=== PATIENT | female | born 1990 | race African-American/Black ===

== ENCOUNTER 2019-04-02 20:49 | Emergency (ER) | payer MEDICAID, SELFPAY ==
[2019-04-02 20:55] VITALS: BP 129/96; PULSE 137; RESP 18; TEMP 36.6; O2SAT 97
--- NOTE | 2019-04-02 21:03 | W.ED.GENAD ---
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 Details Chief Complaint: RespSymp Clinical Impression: Asthma exacerbation, Viral URI Primary Care Provider: None,None ED Provider: Galen Zabala Home Meds and New Rx's Prescriptions: New albuterol sulfate 90 mcg/actuation HFA aerosol inhaler 2 puff IH .q4-6h PRN (Reason: shortness of breath or wheezing) Qty: 8.5 RF: 0 prednisone 20 mg tablet 40 mg PO DAILY Qty: 6 RF: 0 Discharge Instructions Instructions: Albuterol (By breathing), Asthma (ED), How to Use a Metered-Dose Inhaler and a Spacer (ED) Additional Instructions: Use albuterol inhaler every 4-6 hours for shortness of breath and wheezing. Short burst of steroids to help quiet things down. Please stay hydrated. May use Tylenol or Motrin if needed for discomfort. Will have care management work with you in obtaining a primary care physician in the area. Return to ED for spiking high fevers, chest pain, increasing shortness of breath, other concerns or problems. Referrals: Care Management [Provider Group] Medical Decision Making Patient looks relatively well but has quite an accelerated heart rate. It is regular and most likely sinus tach. She is not describing chest pain, pleurisy. She only feels short of breath with significant exertion. There is no calf tenderness. I do not think that this is PE. I think it is a viral URI with some asthma. She is not wheezing but will give her a DuoNeb and see if she feels any better. Will place an IV and give her a liter of fluid. Check CBC, chemistry, chest x-ray, EKG. Patient feels much better after DuoNeb and albuterol. Labs are unremarkable. Chest x-ray negative. I will give her a short burst of steroids. Heart rate is come down to 110 with fluids. May continue to be mildly elevated due to the nebulizers. She feels much better. Discharge home. Lab Data Lab results reviewed: Yes I reviewed the patient's lab results. ECG Data Attestation: I personally reviewed and interpreted this ECG (s) as follows: Prior ECG tracings: not available for review Interpretation: Sinus tachycardia at a rate of 114. Normal axis and intervals. No acute ST changes. HPI General Mode of arrival: ambulatory. Date/Time Provider Initiated Documentation: 04/02/19 20:55. Limitations to Documentation: no limitations. Information obtained by: patient and RN notes reviewed. HPI Narrative: Patient presents to ED with complaint of worsening URI symptoms over the last couple of days. She has had some mild symptoms for little over a week. The last 2 days she has been worse with increased cough, congestion, dyspnea with exertion. She has headaches on and off. Denies body aches. Denies fevers or chills. She is taking adequate p.o. and has no GI symptoms. She has had to cut way back on smoking because it makes her feel worse in terms of breathing. She has been having some wheeze. She does have history of asthma with hospitalizations as a child but not adult. She does not currently have an inhaler. Related Data Home Medications Medication Instructions Recorded Confirmed albuterol sulfate 2 puff IH .q4-6h PRN #8.5 gm 04/02/19 prednisone 40 mg PO DAILY #6 tab 04/02/19 Previous Rx's Medication Instructions Recorded albuterol sulfate 2 puff IH .q4-6h PRN #8.5 gm 04/02/19 prednisone 40 mg PO DAILY #6 tab 04/02/19 Allergies Allergy/AdvReac Type Severity Reaction Status Date / Time No Known Allergies Allergy Unverified 12/21/17 13:02 General Stated Complaint: RespSymp ERYN: 3 Review of Systems Review of Systems Narrative: As documented in HPI otherwise negative as below. Const: no fever, chills, weakness Resp: cough, NICE; no pleuritic pain CV: no CP, diaphoresis, edema, syncope GI: no abdominal pain, nausea, vomiting, diarrhea Neuro: headache; no numbness, focal weakness, confusion [facility] Medical History Asthma (Chronic) Social History (Updated 04/02/19 @ 21:16 by Galen Zabala MD) Smoking/Tobacco Use Status: Current every day Alcohol Intake: current Alcohol Intake frequency: a few times a month Drug use: Never Substance use type: does not use Do you feel safe in your relationship?: Yes Exam Narrative Exam Narrative: Vitals: Afebrile. Tachycardic to 137 at triage. Somewhat elevated blood pressure. Normal O2 saturations on room air. Const: WDWN female in NAD. HEENT: NC/AT. Normal facial exam. TMs normal. OP with some mild erythema posteriorly. No edema, exudate or sores. Eyes: Normal conjunctiva and sclera. Neck: Supple. Trachea midline. Lungs: Normal respiratory effort. Lungs mostly clear, little diminished in the apex, scattered wheeze. Cor: RRR without murmur/gallop. Good radial pulses. Tachy. Neuro: A+O x 3. CN grossly in tact. Good strength and no focal deficit. Ext: No C/C/E. No calf tenderness. Skin: Warm and dry without rash. Course Vital Signs Vital signs: Vital Signs Temperature 97.9 F 04/02/19 20:55 Pulse 137 H 04/02/19 20:55 Respiratory Rate 18 04/02/19 20:55 Blood Pressure 129/96 H 04/02/19 20:55 Pulse Oximetry 97 04/02/19 20:55 Temperature 97.9 F 04/02/19 20:55 Temperature Source Tympanic 04/02/19 20:55 Pulse 137 H 04/02/19 20:55 Respiratory Rate 18 04/02/19 20:55 Blood Pressure 129/96 H 04/02/19 20:55 Pulse Oximetry 97 04/02/19 20:55 Pain Level 3 04/02/19 20:55 Comment 04/02/19 20:55
[2019-04-02 21:40] LABS: Abs Immature Grans 0.04 k/cumm (0.0-0.09); Absolute Basophil Count 0.04 k/cumm (0.0-0.2); Absolute Eosinophil Count 0.35 k/cumm (0.0-0.7); Absolute Lymphocyte Count 1.82 k/cumm (1.2-3.4); Absolute Monocyte Count 1.28 k/cumm (0.11-0.7); Absolute Neutrophil Count 7.38 k/cumm (1.2-6.7); Basophils % 0.4; Eosinophils % 3.2; HCT 39.5 % (36.0-46.0); HGB 13.3 g/dL (12.0-15.5); Immature Grans % 0.4; Lymphocytes % 16.7; Mean Corp. HGB Concentration 33.7 g/dL (32.0-36.0); Mean Corpuscular Hemoglobin 31.7 pg (27.0-33.0); Mean Corpuscular Volume 94.3 fL (80-95); Mean Platelet Volume 9.2 fL (8.0-11.0); Monocytes % 11.7; Neutrophils % 67.6; Platelet Count 366 x1000/uL (130-400); RBC 4.19 m/cumm (4.00-5.20); RBC Distribution Width 11.9 % (11.7-14.6); White Blood Cell Count 10.91 k/cumm (4.4-10.8)
[2019-04-02] MEDS: Albuterol/Ipratropium 3 ML UPD VIAL UPD (21:40)
[2019-04-02] MEDS: Lactated Ringers 1,000 ML 1000 ML IV (21:40)
--- NOTE | 2019-04-02 21:42 | DI.RAD_ITS ---
EXAM: XR CHEST 2V PA LATERAL INDICATION: cough/SOB. COMPARISON: No exams were available for comparison TECHNIQUE: 2D digital imaging was performed. FINDINGS: Heart is not enlarged. The lungs are clear. No pleural effusion seen. IMPRESSION: No evidence of acute process.
[2019-04-02 21:47] LABS: Anion Gap 12.4 mmol/L (3-11); BUN 7 mg/dL (7-18); CO2 23.6 mmol/L (21.0-32.0); CREATININE 0.64 mg/dL (0.55-1.02); Calcium 8.8 mg/dL (8.5-10.1); Chloride 104 mmol/L (98-107); Glucose 145 mg/dL (70-100); Potassium 3.6 mmol/L (3.5-5.1); Sodium 140 mmol/L (136-145)
[2019-04-02] MEDS: Albuterol 2.5 MG/3 ML INH SOLN VIAL UPD (22:17)
[2019-04-02] MEDS: predniSONE 20 MG TAB 60 MG PO (22:18)
--- NOTE | 2019-04-02 22:20 | DI.VRAD_ITS ---
PROCEDURE INFORMATION: Exam: XR Chest, 2 Views Exam date and time: 04/02/2019 10:02 PM Clinical history: 28 years old, female; Cough and shortness of breath; Smoker's cough TECHNIQUE: Imaging protocol: XR of the chest Views: 2 views. COMPARISON: No relevant prior studies available. FINDINGS: Lungs: Unremarkable. No consolidation. Pleural space: Unremarkable. No evidence of pneumothorax. Heart/Mediastinum: Unremarkable. Heart size within normal limits for technique. Bones/joints: Unremarkable. IMPRESSION: No acute findings. Dictated and Authenticated by: Carter Schmitt MD. Ordering:DALTON Aaron MD
[2019-04-02 22:24] VITALS: PULSE 115; O2SAT 99
[2019-04-02 22:49] VITALS: BP 129/96; PULSE 115; O2SAT 99
[2019-04-02] MEDS: Albuterol HFA 8 GM 60 PUFF INH IH (22:57)
== END 2019-04-02 23:03 | disposition home or self-care (01) ==
PROVIDERS: Emergency Provider Emergency Medicine
DX: J45.901 Unspecified asthma with (acute) exacerbation (principal); J06.9 Acute upper respiratory infection, unspecified
CPT/HCPCS: 80048; 93005; 94640; 96360; 99285; 71046; 85025; 93010; J7512; J7613; J7620

== ENCOUNTER 2019-04-12 13:13 | Emergency (ER) | payer MEDICAID, SELFPAY ==
[2019-04-12 13:25] VITALS: BP 140/89; PULSE 102; RESP 18; TEMP 36.7; O2SAT 99
--- NOTE | 2019-04-12 16:02 | ED.GENADUL_ITS ---
Discharge Plan Disposition Patient Disposition: HOME Discharge Details Chief Complaint: DentalOral Clinical Impression: Dental caries, Abscess, dental Primary Care Provider: None,None ED Provider: Jose Mcdonald Home Meds and New Rx's Prescriptions: New penicillin V potassium 500 mg tablet 500 mg PO QID 10 Days Qty: 40 RF: 0 No Action albuterol sulfate 90 mcg/actuation HFA aerosol inhaler 2 puff IH .q4-6h PRN (Reason: shortness of breath or wheezing) Qty: 8.5 RF: 0 Discharge Instructions Instructions: Dental Abscess (ED), Dental Caries (ED) Additional Instructions: Ibuprofen 200 mg: take 3 tabs every 8 hours as needed for pain and swelling. Tylenol 500 mg: take 2 tabs every 8 hours as needed for pain and swelling Take antibiotics as prescribed for the entire duration. Follow up with Dentist this Sunday as scheduled. Return should symptoms worsen Referrals: Jose Mcdonald PA [Emergency Provider] - Return if symptoms worsen Medical Decision Making This is a nontoxic-appearing 28-year-old female with a right to dental carry with associated gingival swelling. I do not appreciate a fluctuant fluid-filled abscess at this point time. She has no facial erythema. Vitals are stable here. Plan is to place on penicillin 500 mg 4 times daily x10 days and have her keep her appointment with her dentist in 48 hours. Return precautions provided. HPI General Date/Time Provider Initiated Documentation: 04/12/19 13:35 . HPI Narrative: Patient is a 28-year-old female who presents to the emergency department with right lower dental pain and jaw swelling over the last 8 to 12 hours. Patient states that she is a dental pain for the last 3 to 4 days. She denies any severe facial tenderness or redness. No fevers. No eye pain or discharge. She has a follow-up with her dentist in 48 hours. She has no allergies to antibiotics. Related Data Home Medications Medication Instructions Recorded Confirmed albuterol sulfate 2 puff IH .q4-6h PRN #8.5 gm 04/02/19 04/12/19 penicillin V potassium 500 mg PO QID 10 Days #40 tab 04/12/19 Previous Rx's Medication Instructions Recorded albuterol sulfate 2 puff IH .q4-6h PRN #8.5 gm 04/02/19 penicillin V potassium 500 mg PO QID 10 Days #40 tab 10/12/19 Allergies Allergy/AdvReac Type Severity Reaction Status Date / Time No Known Allergies Allergy Unverified 04/12/19 13:27 General Stated Complaint: DentalOral ERYN: 4 Review of Systems Constitutional Constitutional: Denies chills, Denies fever(s), Denies headache(s) and Denies malaise Eyes Eyes: Denies eye discharge ENT Ears, Nose, Mouth, and Throat: Denies bleeding gums, Reports dental pain, Denies dry mouth, Denies headache(s), Denies mouth lesions, Denies mouth pain and Denies neck pain Gastrointestinal Gastrointestinal: Denies vomiting Musculoskeletal Musculoskeletal: Denies neck pain Neurologic Neurologic: Denies headache(s) [facility] Medical History Asthma (Chronic) Social History Smoking/Tobacco Use Status: Current every day Tobacco Type: cigarettes Alcohol Intake: current Alcohol Intake frequency: a few times a month Drug use: Never Substance use type: does not use Do you feel safe in your relationship?: Yes Exam Const General: cooperative, healthy appearing, comfortable and no acute distress Orientation: alert, awake and oriented x3 HENMT Teeth and gingiva: caries (Extensive decay involving the #28 tooth. Associated gingival swelling. ) Course Vital Signs Vital signs: Vital Signs Temperature 36.7 C 04/12/19 13:25 Pulse 102 H 04/12/19 13:25 Respiratory Rate 18 04/12/19 13:25 Blood Pressure 140/89 04/12/19 13:25 Pulse Oximetry 99 04/12/19 13:25 Temperature 36.7 C 04/12/19 13:25 Temperature Source Skin 04/12/19 13:25 Pulse 102 H 04/12/19 13:25 Respiratory Rate 18 04/12/19 13:25 Respiratory Effort Non-Labored 04/12/19 13:28 Blood Pressure 140/89 04/12/19 13:25 Blood Pressure Position Sitting 04/12/19 13:25 Pulse Oximetry 99 04/12/19 13:25 Oxygen Delivery Method Room Air 04/12/19 13:25 Oxygen Flow Rate 0 04/12/19 13:25 Pain Level 6 04/12/19 13:25
== END 2019-04-12 16:15 | disposition home or self-care (01) ==
PROVIDERS: Emergency Provider Physician Assistant
DX: K02.9 Dental caries, unspecified (principal); K04.7 Periapical abscess without sinus
CPT/HCPCS: 99283

== ENCOUNTER 2019-09-05 12:01 | Outpatient (CLI) | payer MEDICAID, SELFPAY ==
[2019-09-05 12:23] LABS: Abs Immature Grans 0.04 k/cumm (0.0-0.09); Absolute Basophil Count 0.03 k/cumm (0.0-0.2); Absolute Eosinophil Count 0.22 k/cumm (0.0-0.7); Absolute Lymphocyte Count 2.04 k/cumm (1.2-3.4); Absolute Monocyte Count 0.89 k/cumm (0.11-0.7); Basophils % 0.3; HGB 12.3 g/dL (12.0-15.5); Immature Grans % 0.4 %; Lymphocytes % 18.2; Mean Corp. HGB Concentration 33.2 g/dL (32.0-36.0); Mean Corpuscular Hemoglobin 30.7 pg (27.0-33.0); Mean Corpuscular Volume 92.3 fL (80-95); Mean Platelet Volume 8.7 fL (8.0-11.0); Monocytes % 7.9; Neutrophils % 71.2; Platelet Count 403 x1000/uL (130-400); RBC 4.01 m/cumm (4.00-5.20); White Blood Cell Count 11.23 k/cumm (4.4-10.8)
[2019-09-05 13:29] LABS: ALT 19 U/L (14-59); AST 17 U/L (15-37); Albumin 3.6 g/dL (3.4-5.0); Alkaline Phosphatase 75 U/L (46-116); Anion Gap 11.2 mmol/L (3-11); BUN 6 mg/dL (7-18); Bilirubin, Total 0.2 mg/dL (0.2-1.0); CO2 24.8 mmol/L (21.0-32.0); CREATININE 0.59 mg/dL (0.55-1.02); Chloride 102 mmol/L (98-107); Glucose 74 mg/dL (74-106); Potassium 4.3 mmol/L (3.5-5.1); Sodium 138 mmol/L (136-145); TSH (W/Ref FT4) 2.51 uIU/mL (0.36-3.74); Total Protein 6.4 g/dL (6.4-8.2); Uric Acid 2.3 mg/dL (2.6-6.0)
[2019-09-07 10:05] LABS: Syphilis Total Ab w/Reflex Nonreactive (Nonreactive)
[2019-09-08 10:26] LABS: Hepatitis B Surface Ag Negative (Negative)
[2019-09-08 11:20] LABS: Hepatitis C Ab w Rflx HCV PCR Negative (Negative)
[2019-09-08 11:39] LABS: HIV-1/2 Ag & Ab Screen Negative (Negative)
[2019-09-08 11:44] LABS: Varicella IgG Antibody Positive (See Note)
[2019-09-08 11:53] LABS: Rubella IgG Ab (UVM) Positive (See Note)
== END 2019-09-05 12:21 ==
PROVIDERS: Visit Provider Advanced Practice Midwife
DX: Z34.91 Encounter for supervision of normal pregnancy, unspecified, first trimester (principal); Z11.4 Encounter for screening for human immunodeficiency virus [HIV]; Z11.59 Encounter for screening for other viral diseases; Z01.84 Encounter for antibody response examination
CPT/HCPCS: 36415; 80053; 86787; 86803; 86850; 86900; 86901; 87340; 87389; 84443; 84550; 85025; 86762; 86780

== ENCOUNTER 2019-09-05 12:39 | Outpatient (REF) | payer MEDICAID, SELFPAY ==
--- NOTE | 2019-09-05 11:20 | PAPFT_PTH ---
PATIENT: JAMES LUGO LOC: [facility] U#:[id number] AGE/SX: 29/F ROOM: RE09/05/[address]: Adelia Urrutia CNM : 1990 BED: DIS: 09/05/2019 SPEC #: [id number] RECD: 09/05/19 13:11 STATUS: JOSE FRANCISCO REYeimi #: [id number] ETHAN: 09/05/19 11:[address]: Adelia Urrutia DEPT: [facility] Cytology RECD BY: Lesa Millan ENTERED: 09/05/19 13:11 SP TYPE: PAPFT OTHR DR: None Tissues: 1 - CX/ENDOCX FOR PAP SMEARS Procedures: PAP THIN PREP/UVM Screening Comments: [id number]
[2019-09-05 14:26] LABS: *AMPHETAMINES SCREEN URINE Negative (Negative); *BARBITURATES SCREEN URINE Negative (Negative); *BENZODIAZEPINES SCREEN URINE Negative (Negative); Cannabinoids THC Negative (Negative); Cocaine Screen,Urine Negative (Negative); METHADONE URINE SCREEN Negative (Negative); OPIATES URINE SCREEN Negative (Negative)
[2019-09-05 14:34] LABS: Tricyclic Antidepressants Negative (Negative)
[2019-09-08 15:48] LABS: Chlamydia Result Negative (Negative); GC Result Negative (Negative)
[2019-09-10 12:26] LABS: Buprenorphine Negative; Norbuprenorphine Negative
== END 2019-09-05 12:59 ==
LOC: LBN 12:39
PROVIDERS: Visit Provider Advanced Practice Midwife
DX: Z34.91 Encounter for supervision of normal pregnancy, unspecified, first trimester (principal); Z11.3 Encounter for screening for infections with a predominantly sexual mode of transmission; Z12.4 Encounter for screening for malignant neoplasm of cervix
CPT/HCPCS: 80307; 87491; 87591; 88142; 87086

== ENCOUNTER 2019-09-14 09:23 | Outpatient (CLI) | payer MEDICAID, SELFPAY ==
[2019-09-14 10:00] LABS: Glucose,1 Hr (Glucola) 124 mg/dL (80-140)
== END 2019-09-14 09:43 ==
PROVIDERS: Visit Provider Advanced Practice Midwife
DX: Z34.91 Encounter for supervision of normal pregnancy, unspecified, first trimester (principal); Z68.35 Body mass index [BMI] 35.0-35.9, adult
CPT/HCPCS: 36415; 82950

== ENCOUNTER 2019-09-17 13:07 | Emergency (ER) | payer MEDICAID, SELFPAY ==
[2019-09-17 13:10] VITALS: BP 149/83; PULSE 88; RESP 16; TEMP 36.5; O2SAT 98
--- NOTE | 2019-09-17 13:30 | DI.US_ITS ---
EXAM: US OB 1ST TRIMESTER CLINICAL HISTORY: vaginal bleeding, 11 weeks TECHNIQUE: Ultrasound performed using standard protocol. COMPARISON: No exams were available for comparison FINDINGS: Ob ultrasound was performed utilizing 1st trimester protocol. There is an 8 week 2 day intrauterine gestation garcia by crown-rump length. No cardiac activity observed. 22 millimeter right o varian cyst seen. No free fluid identified in the cul-de-sac. anatomic contours are not ideally defined. IMPRESSION: Apparent demise, 8 week size gestation. DATA REPOSITORY:
[2019-09-17 13:50] LABS: Bilirubin Negative (Negative); Blood Trace-lysed (Negative); Clarity Clear (Clear); Glucose Negative (Negative); Ketones Negative (Negative); Leukocyte Esterase Negative (Negative); Nitrite Negative (Negative); Urobilinogen 0.2 EU/dL (Up TO 0.2)
[2019-09-17 14:04] LABS: Bacteria Negative HPF (Negative); C & S Indicated? No; Casts Negative LPF (Negative); Crystals Negative HPF (Negative); Epithelial Cells Rare HPF (Negative); Mucus Trace (Negative); RBC 0-2 HPF (0-2); WBC Negative HPF (0-5)
--- NOTE | 2019-09-17 14:36 | ED.GENADUL_ITS ---
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 No heart rate was noted on ultrasound, and it appears that there is been a cessation of growth. If this does transition into a miscarriage I would expect you to have increased passage of clots, tissue and bleeding over the next few days and then a slow improvement. Please take Tylenol as needed for cramping. Please follow-up closely with your OB appointment on Sunday. If you notice any worsening of your symptoms, or any new symptoms such as vomiting, diarrhea, fever, chills, shortness of breath, chest pain, numbness, weakness, or fainting , please return immediately to the emergency department for reevaluation. Please follow up with your primary care provider as soon as possible for reassessment and reevaluation. As always, it was a pleasure p articipating in your medical care today. Referrals: SOLDER DEPOSIT OPERATOR,[place] [OTHER] - Tyson Marrero MD [ NON-[facility] STAFF PHYSICIAN] - Discharge Data Discharge Date/Time-TO BE ENTERED AT DEPARTURE: 09/17/19 15:04 Medical Decision Making This is a 29-year-old -[place] female who is a G1, P0, O+, currently 11 weeks who presents today for evaluation of vaginal bleeding. Patient states that for the last 5 days she has had intermittent very mild cramping, in conjunction with mild intermittent bleeding. The degree of bleeding oscillates between the days, some days will be heavier with small amounts of clots, other days will be very minimal. She denies any significant pain, nausea vomiting or diarrhea. Last day of intercourse was about 7 to 10 days ago, definitely prior to when her symptoms began. She denies numbness tingling or weakness. She denies any other complications in . She has had an ultrasound already and states that a heart rate was noted at that time. No other complaints at this time. No other modifying factors. She denies any urinary complaints, or other discharge. Physical exam demonstrates a closed cervical loss, I was not able to evaluate her heartbeat on my ultrasound bedside. I did offer formal ultrasound versus watchful waiting, patient did request formal ultrasonography. Ultrasound shows evidence of an 8-week sized embryo, no heartbeat, suspected demise. At this point I do feel that the patient signs and symptoms are consistent with a threatened miscarriage versus inevitable miscarriage. No clinical symptomatology at this point concerning for ectopic . Symptoms clinically consistent with inevitable miscarriage. This time patient is notably stable, no signs of an acute surgical abdomen. We will recommend continue close follow-up with her OB in 48 hours at her scheduled appointment. hCG level was ordered here. Discussed red flags for which to return. I have extensively reviewed the treatment plan and discharge instructions with the patient and their family. I have addressed all patient concerns at this time. The patient and family was made aware of what symptoms to monitor for that would warrant a return to the emergency department. Discussed the plan with the patient and family, they demonstrate verbal understanding and agreement with our assessment and plan at this time. HPI General Date/Time Provider Initiated Documentation: 09/17/19 13:16 . HPI Narrative: This is a 29-year-old -[place] female who is a G1, P0, O+, who presents today for evaluation of vaginal bleeding. Patient states that for the last 5 days she has had intermittent very mild cramping, in conjunction with mild intermittent bleeding. The degree of bleeding oscillates between the days, some days will be heavier with small amounts of clots, other days will be very minimal. She denies any significant pain, nausea vomiting or diarrhea. Last day of intercourse was about 7 to 10 days ago, definitely prior to when her symptoms began. She denies numbness tingling or weakness. She denies any other complications in . She has had an ultrasound already and states that a heart rate was noted at that time. No other complaints at this time. No other modifying factors. She denies any urinary complaints, or other discharge. Related Data Home Medications Medication Instructions Recorded Confirmed albuterol sulfate 90 mcg/actuation 2 puff IH .q4-6h PRN #8.5 gm 09/05/19 09/17/19 aerosol inhaler aspirin 81 mg tablet,delayed 81 mg PO DAILY #90 tab 09/05/19 09/17/19 release vitamins no.119-iron 1 tab PO DAILY tab 09/05/19 09/17/19 fumarate 29 mg-folic acid 1 mg tablet Previous Rx's Medication Instructions Recorded albuterol sulfate 90 mcg/actuation 2 puff IH .q4-6h PRN #8.5 gm 09/05/19 aerosol inhaler aspirin 81 mg tablet,delayed 81 mg PO DAILY #90 tab 09/05/19 release Allergies Allergy/AdvReac Type Severity Reaction Status Date / Time No Known Allergies Allergy Unverified 09/17/19 13:17 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 Review of Systems All systems reviewed & are unremarkable except as noted in HPI and below PFSH Social History Smoking/Tobacco Use Status: Current every day Tobacco Type: cigarettes Alcohol Intake: current Alcohol Intake frequency: a few times a month Drug use: Never Substance use type: does not use Do you feel safe at home: Yes Do you feel safe in your relationship?: Yes History History 1 Para 0 Hx # Term Pregnancies 0 Multiple births 0 Hx # Pregnancies 0 Ectopic pregnancies 0 AB induced 0 Hx Number of Living Children 0 AB spontaneous 0 Exam Narrative Exam Narrative: 1.Const: Well-nourished, Well-developed, appearing stated age 2.Eyes: PERRL, no conjunctival injection, and symmetrical lids. 3.ENT: Atraumatic external nose and ears. Moist MM. Neck: Symmetric, trachea midline, No thyromegaly. 4.CVS: +S1/S2, No murmurs or gallops. Peripheral pulses 2+ and equal in all extremities. Brisk capillary refill in all extremities. 5.RESP: Unlabored respiratory effort. Clear to auscultation bilaterally. No wheezes rales or rhonchi 6.GI: Soft, Nontender/Nondistended, No hepatosplenomegaly. No guarding or rebound. Female vaginal exam was performed with female nurse Ermelinda at bedside. Vaginal exam demonstrates small amount of blood, cervical loss is closed. No discharge. Bimanual exam demonstrates no significant tenderness. 7.MSK: Normocephalic/Atraumatic, Extremities w/o deformity or ttp No cyanosis or clubbing, Normal movement of all extremities 8.Skin: Warm, Dry. No rashes or lesions. 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 Sensation grossly intact, no focal neurologic deficits. 10.Psych: (AAO) x3. Appropriate mood and affect Course Vital Signs Vital signs: Vital Signs Temperature 36.5 C 09/17/19 13:10 Pulse 88 09/17/19 13:10 Respiratory Rate 16 09/17/19 13:10 Blood Pressure 149/83 H 09/17/19 13:10 Pulse Oximetry 98 09/17/19 13:10 Temperature 36.5 C 09/17/19 13:10 Temperature Source Tympanic 09/17/19 13:10 Pulse 88 09/17/19 13:10 Respiratory Rate 16 09/17/19 13:10 Respiratory Effort Non-Labored 09/17/19 13:16 Blood Pressure 149/83 H 09/17/19 13:10 Blood Pressure Position Sitting 09/17/19 13:10 Pulse Oximetry 98 09/17/19 13:10 Oxygen Delivery Method Room Air 09/17/19 13:10 Oxygen Flow Rate 0 09/17/19 13:10 Pain Level 3 09/17/19 13:10 Lab/Test Results Lab/Test Results: Laboratory Tests Range/Units 09/17/19 13:31 Urine Color (Yellow) Yellow Urine Clarity (Clear) Clear Urine pH (5-8) 7.0 Ur Specific Bo[place] (1.005-1.025) 1.010 Urine Protein (Negative) mg/dL Negative Urine Ketones (Negative) mg/dL Negative Urine Blood (Negative) Trace-lysed H Urine Nitrite (Negative) Negative Urine Bilirubin (Negative) Negative Urine Urobilinogen (Up TO 0.2) EU/dL 0.2 Ur Leukocyte Esterase (Negative) Negative Urine RBC (0-2) HPF 0-2 Urine WBC (0-5) HPF Negative Ur Epithelial Cells (Negative) HPF Rare Urine Crystals (Negative) HPF Negative Urine Bacteria (Negative) HPF Negative Urine Casts (Negative) LPF Negative Urine Mucus (Negative) Trace Ur Culture Indicated? No Urine Glucose (Negative) mg/dL Negative
--- NOTE | 2019-09-17 16:50 | NUR.NOTE ---
Referral faxed to [facility].Nursing Note:
[2019-09-17 17:07] LABS: HCG Quant, Pregnancy 7293 mIU/mL (1-3)
== END 2019-09-17 15:04 | disposition home or self-care (01) ==
LOC: ER 14:43
PROVIDERS: Emergency Provider Student in an Organized Health Care Education/Training Program
DX: O20.0 Threatened abortion (principal); Z3A.11 11 weeks gestation of pregnancy
CPT/HCPCS: 36415; 99284; 76801; 81003; 81015; 84702

== ENCOUNTER 2020-05-16 11:20 | Emergency (ER) | payer MEDICAID, SELFPAY ==
--- NOTE | 2020-05-16 11:15 | DI.RAD_ITS ---
EXAM: XR CERVICAL SP NAVARRETE TRAUMA 2-3V CLINICAL HISTORY: Pain, decreased ROM TECHNIQUE: COMPARISON: No exams were available for comparison FINDINGS: Three views were obtained. There is a minimal cervical kyphosis. The intervertebral disc spaces are fairly well maintained. Prevertebral soft tissues appear intact. Tracheo laryngeal air shadows spencer ear normal. There is no evidence of acute fracture or dislocation. IMPRESSION: No evidence of acute injury. RADIATION DOSE DELIVERED: Total DLP
[2020-05-16 11:23] VITALS: BP 138/89; PULSE 97; RESP 17; TEMP 37.1; O2SAT 100
--- NOTE | 2020-05-16 11:30 | ED.GENADUL_ITS ---
Discharge Plan Disposition Patient Disposition: HOME Condition: Stable Discharge Details Clinical Impression: Acute torticollis Primary Care Provider: None,None ED Provider: Camryn Quintero Home Meds and New Rx's Prescriptions: New cyclobenzaprine 10 mg tablet 10 mg PO TID PRN (Reason: muscle spasm) Qty: 10 RF: 0 ketorolac 10 mg tablet 10 mg PO TID PRN (Reason: pain) 5 Days Qty: 15 RF: 0 No Action albuterol sulfate 90 mcg/actuation HFA aerosol inhaler 2 puff IH .q4-6h PRN (Reason: shortness of breath or wheezing) Qty: 8.5 RF: 0 Discharge Instructions Instructions: Spasmodic Torticollis (ED) Additional Instructions: Follow up with primary care provider in 3-5 days. Return to ED sooner if any worsening or concerns. Increase oral fluids. Please take Tylenol or Ibuprofen with food every 4-6 hours as needed for pain and swelling. Do not take ibuprofen with the Toradol. You may try [id number] lidocaine patch or similar. Alternate ice and heat. Try massage and or chiropractor. Medical Decision Making 29-year-old female presents to the ER chief complaint of paraspinous neck pain. She has decreased range of motion noted to her neck due to muscle spasm. This has been ongoing since workout on Sunday. She has been applying ice and heat with little to no relief. Denies any falls or trauma. Past medical history of asthma. Exam: XR Cervical Spine, 2 or 3 Views Exam date and time: 05/16/2020 11:57 AM Age: 29 years old Clinical indication: Neck pain; Additional info: Injured while working out TECHNIQUE: Imaging protocol: XR of the cervical spine, 2 or 3 views. COMPARISON: No relevant prior studies available. FINDINGS: Bones/joints: Normal. No acute fracture. Normal alignment. Soft tissues: Unremarkable. IMPRESSION: No acute findings. Thank you for allowing us to participate in the care of your patient 1220: Patient reevaluation, states decreased pain. X-ray at this time is within normal limits. Will discharge with prescription for Flexeril, Toradol and instructions to alternate ice and heat and apply lidocaine patches. HPI General Mode of arrival: ambulatory . Date/Time Provider Initiated Documentation: 05/16/20 11:20 . Limitations to Documentation: no limitations . Information obtained by: patient . HPI Narrative: 29-year-old female presents to the ER chief complaint of paraspinous neck pain. She has decreased range of motion noted to her neck due to muscle spasm. This has been ongoing since workout on Sunday. She has been applying ice and heat with little to no relief. Denies any falls or trauma. Past medical history of asthma. Related Data Home Medications Medication Instructions Recorded Confirmed albuterol sulfate 90 mcg/actuation 2 puff IH .q4-6h PRN #8.5 gm 09/05/19 05/16/20 aerosol inhaler cyclobenzaprine 10 mg PO TID PRN #10 tab 05/16/20 ketorolac 10 mg PO TID PRN 5 Days #15 tab 05/16/20 Previous Rx's Medication Instructions Recorded albuterol sulfate 90 mcg/actuation 2 puff IH .q4-6h PRN #8.5 gm 09/05/19 aerosol inhaler cyclobenzaprine 10 mg PO TID PRN #10 tab 05/16/20 ketorolac 10 mg PO TID PRN 5 Days #15 tab 05/16/20 Allergies Allergy/AdvReac Type Severity Reaction Status Date / Time No Known Allergies Allergy Unverified 09/24/19 15:43 General Stated Complaint: Nk/Back Pain ERYN: 4 Review of Systems Narrative: Constitutional: Negative for weight loss, alert and oriented, well groomed, normal body habitus, appears comfortable. HEENT: Denies trauma, headaches, blurry vision, nasal discharge, sore throat, trouble swallowing. Chest: Denies chest pain, palpitations, irregular rhythm, hypertension. Respiratory: Denies Shortness of breath, cough, hemoptysis. Musculoskeletal: Reports neck tenderness. GI: Denies abdominal pain, nausea, vomiting, diarrhea, constipation. : Denies dysuria, hematuria, flank pain, rectal bleeding. Neuro: Denies dizziness, blurry vision, weakness, syncope, headache or facial nu mbness. Hematologic: Denies easy bruising, intolerance to heat or cold, hair loss. [facility] Medical History (Updated 05/16/20 @ 12:17 by Camryn Quintero) Asthma Social History Smoking/Tobacco Use Status: Current every day Tobacco Type: cigarettes Smoking risk assessment performed?: Yes Alcohol Intake: current Alcohol Intake frequency: a few times a month Drug use: Never Substance use type: does not use Do you feel safe at home: Yes Do you feel safe in your relationship?: Yes History History 1 Para 0 Hx # Term Pregnancies 0 Multiple births 0 Hx # Pregnancies 0 Ectopic pregnancies 0 AB induced 0 Hx Number of Living Children 0 AB spontaneous 0 Exam Narrative Exam Narrative: Constitutional: Alert and oriented x3. Appears stated age. Normal body habitus. Head: Normocephalic, no trauma. Eyes: Pupils PERRLA, Red reflex noted, EOM's intact. Eyelids symmetrical without lesions, discharge, or swelling. ENT: Bilateral TM's WNL, External ear normal to inspection, no mastoid TTP, swelling, or erythema, Nasal turbinates WNL, no nasal discharge. Normal dentition, Posterior pharynx WNL, no exudate. Chest: RRR, Normal S1, S2, distal pulses intact. Resp: Lungs clear to auscultation bilaterally, no wheezes, rales, or rhonchi. Musculoskeletal: Normal gait, 5/5 strength to all four extremities. Tenderness and muscle spasm noted to the right lateral paraspinous C-spine. No midline tenderness no crepitus no step-off. Decreased range of motion. Skin: No suspicious rashes or lesions. Capillary refill less than 2 sec. Neurologic: Cranial nerves II-XII intact. Alert and oriented x 3. DTR's intact. Hematologic/Lymphatic: No ecchymosis, no lymphadenopathy. Course Vital Signs Vital signs: Vital Signs Temperature 37.1 C 05/16/20 11:23 Pulse 97 H 05/16/20 11:23 Respiratory Rate 17 05/16/20 11:23 Blood Pressure 138/89 05/16/20 11:23 Pulse Oximetry 100 05/16/20 11:23 Temperature 37.1 C 05/16/20 11:23 Temperature Source Temporal Artery Scan 05/16/20 11:23 Pulse 97 H 05/16/20 11:23 Respiratory Rate 17 05/16/20 11:23 Respiratory Effort 05/16/20 11:29 Blood Pressure 138/89 05/16/20 11:23 Blood Pressure Position Sitting 05/16/20 11:23 Pulse Oximetry 100 05/16/20 11:23 Oxygen Delivery Method Room Air 05/16/20 11:23 Oxygen Flow Rate 0 05/16/20 11:23
[2020-05-16] MEDS: diazePAM 2 MG TAB PO (11:38)
[2020-05-16] MEDS: Ketorolac 10 MG TAB PO (11:38)
[2020-05-16] MEDS: Lidocaine 5% Patch 1 PATCH TP (11:39)
--- NOTE | 2020-05-16 12:06 | DI.VRAD_ITS ---
PROCEDURE INFORMATION: Exam: XR Cervical Spine, 2 or 3 Views Exam date and time: 05/16/2020 11:57 AM Age: 29 years old Clinical indication: Neck pain; Additional info: Injured while working out TECHNIQUE: Imaging protocol: XR of the cervical spine, 2 or 3 views. COMPARISON: No relevant prior studies available. FINDINGS: Bones/joints: Normal. No acute fracture. Normal alignment. Soft tissues: Unremarkable. IMPRESSION: No acute findings. Dictated and Authenticated by: Virginie Delacruz MD. Ordering:CARLENE Cowan MD
[2020-05-16 12:26] VITALS: BP 122/89; PULSE 94; RESP 16; O2SAT 98
== END 2020-05-16 12:32 | disposition home or self-care (01) ==
LOC: ER 12:30
PROVIDERS: Emergency Provider Registered Nurse Emergency
DX: G24.3 Spasmodic torticollis (principal); X50.9XXA Other and unspecified overexertion or strenuous movements or postures, initial encounter
CPT/HCPCS: 81025; 99283; 72040; 99284